=== PATIENT | male | born 1950 | race Caucasian/White ===

== ENCOUNTER → 2018-01-16 | Outpatient (CLI) | payer MEDICARE ==
--- NOTE | 2018-01-17 05:48 | CT ---
EXAMINATION TYPE: CT brain wo/w con DATE OF EXAM: 01/16/2018 COMPARISON: Prior CT brain January 27, 2014 HISTORY: Syncope per order. CT DLP: 1991.5 mGycm Automated exposure control for dose reduction was used. CONTRAST: CT scan of the head is performed without and with IV Contrast, patient injected with 100 mL of Isovue 300. FINDINGS: Noncontrast images show no acute intracranial hemorrhage or midline shift. There is mild ventricular and sulcal prominence consistent with mild diffuse age-related cerebral atrophy. There is low attenua tion in the deep and periventricular white matter most likely on the basis of product of chronic smal l vessel ischemic change. Postcontrast images show no suspicious enhancing intraparenchymal mass. Pat darling soft tissue density right extracardiac canal is retroflexed remain. There is new air fluid level right sphenoid sinus. Remainder paranasal sinuses are clear. Visualized portion of both globes are in tact. IMPRESSION: 1. There is mild diffuse age-related cerebral atrophy and mild to moderate chronic small vessel ische kenney change redemonstrated without significant interval change. 2. There is no suspicious enhancing intraparenchymal mass. 3. New acute right sphenoid sinus disease noted.
--- NOTE | 2018-01-17 08:21 | US ---
EXAMINATION TYPE: US carotid duplex BILAT DATE OF EXAM: 01/16/2018 COMPARISON: NONE CLINICAL HISTORY: R55 Syncope. h/o tia EXAM MEASUREMENTS: RIGHT: Peak Systolic Velocity (PSV) cm/sec ----- Right CCA: 85.8 ----- Right ICA: 73.8 ----- Right ECA: 85.3 ICA/CCA ratio: 0.9 RIGHT: End Diastole cm/sec ----- Right CCA: 16.8 ----- Right ICA: 22.5 ----- Right ECA: 11.7 LEFT: Peak Systolic Velocity (PSV) cm/sec ----- Left CCA: 77.9 ----- Left ICA: 57.2 ----- Left ECA: 82.3 ICA/CCA ratio: 0.7 LEFT: End Diastole cm/sec ----- Left CCA: 16.8 ----- Left ICA: 15.9 ----- Left ECA: 15.1 VERTEBRALS (direction of flow): Right Vertebral: Antegrade Left Vertebral: Antegrade Rhythm: Normal Mild homogeneous plaque with no stenosis seen, waveform analysis does not show any significant stenos is of the proximal internal carotid arteries. Grayscale, color Doppler, spectral Doppler imaging performed of the carotid arteries. IMPRESSION: No hemodynamic significant stenosis of the proximal internal carotid arteries bilaterall y by Doppler criteria, an indirect measurement of carotid stenosis
== END | disposition home or self-care (01) ==
LOC: RADUSMAIN 16:54
PROVIDERS: ATTEND Internal Medicine
DX: G31.1 Senile degeneration of brain, not elsewhere classified (principal); I67.82 Cerebral ischemia; R55 Syncope and collapse
CPT/HCPCS: 82565; 84520; 93880; 70470; 36415; Q9967

== ENCOUNTER → 2021-06-01 | Outpatient (CLI) | payer MEDICARE ==
--- NOTE | 2021-06-01 13:17 | XR ---
EXAMINATION TYPE: XR chest 2V DATE OF EXAM: 06/01/2021 COMPARISON: NONE HISTORY: Lead placement check TECHNIQUE: Frontal and lateral views of the chest are obtained. FINDINGS: There is a generator in left pectoral region, there are leads in the right atrium and vent ricle, right atrial lead is transversely oriented. Surgical clips are present in left upper quadrant, patchy density at the left lung base and some lateralization of the left hemidiaphragm may be chroni c. There is eventration of the right hemidiaphragm. There is no pneumothorax or pleural effusion. Car diac mediastinal silhouette is within normal limits. IMPRESSION: No evident complication status post lead placement as described, atrial lead is transver sely oriented
== END | disposition home or self-care (01) ==
LOC: RADXRMAIN 11:24
PROVIDERS: ATTEND Internal Medicine Interventional Cardiology
DX: Z45.010 Encounter for checking and testing of cardiac pacemaker pulse generator [battery] (principal)
CPT/HCPCS: 71046

== ENCOUNTER → 2021-10-13 | Day surgery (SDC) | payer MEDICARE ==
[2021-10-09 17:44] VITALS: BMI 39.1
[~2021-10-13] MED LIST: IOPAMIDOL-370 50ML BTL INJ ONE; SODIUM CHLORIDE 0.9% 1,000 ML IV SCH
[2021-10-13 07:02] VITALS: BP 147/79; PULSE 62; RESP 18; TEMP 97.9
[2021-10-13 07:02] LABS: Glucose,Whole Blood 98 mg/dL (75-99)
--- NOTE | 2021-10-13 07:51 | P.EPPROC ---
- EP Procedure Note Electrophysiology Procedure Note: Indication for the procedure High atrial lead impedance Patient underwent dual-chamber pacemaker implanted in [address] [facility] medical information officer Screw-in atrial lead Screw-in RV lead Cinefluoroscopy Cinefluoroscopy of the leads revealed no obvious fractures or breaks in the lead Left upper extremity venogram 15 mL every dye injected into the arm No evidence for any stenosis in the subclavian/axillary junction Normal flow in the innominate vein to the SVC Plan Consider Atrial lead implant If possible, the old atrial lead will be extracted, 3 year screw-in lead
== END ==
LOC: CATHEP 06:27
PROVIDERS: ATTEND Internal Medicine Clinical Cardiac Electrophysiology
DX: T82.110A Breakdown (mechanical) of cardiac electrode, initial encounter (principal); I42.2 Other hypertrophic cardiomyopathy; I10 Essential (primary) hypertension; E11.9 Type 2 diabetes mellitus without complications; I48.0 Paroxysmal atrial fibrillation; Z20.822 Contact with and (suspected) exposure to COVID-19; Z79.01 Long term (current) use of anticoagulants; Z79.84 Long term (current) use of oral hypoglycemic drugs; Z79.4 Long term (current) use of insulin; Z79.899 Other long term (current) drug therapy
CPT/HCPCS: 36005; 75820; 87635; Q9967

== ENCOUNTER 2021-11-26 05:50 | Day surgery (SDC) | payer MEDICARE ==
[2021-11-24 16:43] VITALS: BMI 38.4
[2021-11-26] MEDS ORDERED: ONDANSETRON 4 MG/2 ML VIAL IVP ONE (05:51)
[2021-11-26] MEDS ORDERED: HYDROmorphone 0.5 MG/0.5 ML SYRINGE IVP PRN (05:51)
[2021-11-26] MEDS ORDERED: ceFAZolin 1,000 MG in SODIUM CHLORIDE 0.9% IRRIGATIO 1,000 ML IRRIGATION ONE (05:51)
[2021-11-26] MEDS ORDERED: LACTATED RINGERS 1,000 ML IV SCH ×3 (05:51)
[2021-11-26] MEDS ORDERED: DEXAMETHASONE SOD PHOSPHATE 4 MG/ML 1 ML VIAL IV ONE (05:51)
[2021-11-26] MEDS ORDERED: SODIUM CHLORIDE 0.9% 1,000 ML IV ONE (06:19)
[2021-11-26 06:45] LABS: Glucose,Whole Blood 118 mg/dL (75-99)
[2021-11-26 06:55] LABS: Basophils # (A) 0.2 k/uL (0-0.2); Basophils % (A) 3 %; Eosinophils # (A) 0.4 k/uL (0-0.7); Eosinophils % (A) 5 %; HGB 16.9 gm/dL (13.0-17.5); Lymphocytes # (A) 1.8 k/uL (1.0-4.8); Lymphocytes % (A) 23 %; MCH 31.7 pg (25.0-35.0); MCHC 33.7 g/dL (31.0-37.0); MCV 93.8 fL (80.0-100.0); Mean Platelet Volume 8.4; Monocytes # (A) 0.7 k/uL (0-1.0); Monocytes % (A) 9 %; Neutrophils # (A) 4.6 k/uL (1.3-7.7); Neutrophils % (A) 58 %; Platelet Count 238 k/uL (150-450); RBC 5.33 m/uL (4.30-5.90); RDW 13.3 % (11.5-15.5); WBC 7.9 k/uL (3.8-10.6)
[2021-11-26] MEDS ORDERED: fentaNYL (PF) 50 MCG/ML 2 ML AMP ONE (07:14)
[2021-11-26] MEDS ORDERED: MIDAZOLAM 2 MG/2 ML VIAL ONE (07:14)
[2021-11-26 07:16] LABS: Calcium 9.7 mg/dL (8.4-10.2); Potassium 3.9 mmol/L (3.5-5.1)
[2021-11-26] MEDS ORDERED: LIDOCAINE 1% INJ 10MG/ML (20 ML MDV) ONE ×3 (07:21→10:47)
[2021-11-26] MEDS ORDERED: LIDOCAINE 1% INJ 10MG/ML (20 ML MDV) SQ ONE ×2 (08:06→08:16)
[2021-11-26] MEDS ORDERED: IOPAMIDOL-370 50ML BTL INJ ONE (08:35)
[2021-11-26] MEDS ORDERED: VANCOMYCIN 1,750 MG in SODIUM CHLORIDE 0.9% 500 ML 500 ML IVPB ONE (09:00)
[2021-11-26] MEDS ORDERED: ACETAMINOPHEN IV (For NPO) 1,000 MG in EMPTY BAG 1 BAG IVPB ONE (11:26)
--- NOTE | 2021-11-26 11:42 | P.EPPROC ---
- EP Procedure Note Electrophysiology Procedure Note: Diagnosis High atrial lead impedance, good P waves sensing History of hypertension diabetes, HCM Procedure Patient was brought to the EP lab in a fasting state. Written informed consent was obtained prior to the procedure. IV antibiotics administered Local anesthesia administered. An incision made in the left pectoral region and carried down to the level of the generator The generator, pacemaker, [facility] medical explanted. Atrial and ventricular leads coiled within the scar tissue. Both the leads were freed carefully from the scar tissue. Venogram was performed 2 access is obtained very laterally at the level of the second rib, axillae venous access The guidewires placed in the right atrium/IVC Then, the sleeves of the chronic Lead were freed, stylets successfully placed in the lower of the leads Atrial lead appeared to be free all along the length from the subclavian vein to the right atrium. An attempt was made to unscrew the lead However on fluoroscopy we could not unscrew the lead at all. This screw appeared to be bent and was at the head to the right atrial tissue This is confirmed with a very gentle tug test At this point a decision was made not to extract this lead. This lead was secured to the pectoralis muscle with the lead sleeve once again and then capped without cutting the lead The lead was secured to the pectoralis muscles The RV lead was fairly along the subclavian, innominate vein and SCC. However it appeared to be adhered to the tricuspid valve area Impedances were stable thresholds were good sensing was excellent Therefore decision was made not to extract with mechanical traction Sheath was placed in the subclavian vein. A 52 cm screw-in [employer] manager medical writing was placed in the right atrium, in the appendage Excellent position excellent sensing with good current of injury noted, and the lead was screwed in Pacing threshold was 0.5 V at 0.5 ms, P waves greater than 5 mV, pacing impedance 810 ohms Sheath was removed. The atrial lead was secured to the pectoralis muscle The new right atrial seizures manager medical writing in the chronic right ventricular [employer] manager medical writing was connected to the old pacemaker generator The RV lead was inspected. An insulation breach was noted just distal to the lead sleeve and this was repaired with silicone and tubing and secured Both leads were then connected to the old generator and the wound was closed in 3 layers and dressed per protocol This procedure took greater than 3 hours on account of evaluation for attempted lead extraction of the chronic right atrium and right ventricular leads Patient tolerated the procedure well without any acute complications. He received IV vancomycin through the procedure Plan IV antibiotics chest x-ray and monitor on telemetry overnight
[2021-11-26] MEDS: SODIUM CHLORIDE 0.9% 1,000 ML IV SCH ×2 (11:57→20:18)
[2021-11-26] MEDS ORDERED: PATIENT'S OWN (Dulaglutide [Trulicity] 0.75 MG/0.5 ML Each) SQ SCH (12:00)
[2021-11-26 12:08] LABS: Glucose,Whole Blood 75 mg/dL (75-99)
--- NOTE | 2021-11-26 12:11 | P.HPCAR ---
History of Present Illness This is Dr. Nguyen dictating an H/P on this patient The patient was interviewed and examined IMPRESSION / ASSESSMENT: Recurrent paroxysmal atrial fibrillation with RVR, symptomatic Recurrent AV connie reentrant tachycardia Failed antiarrhythmic drug therapy as well as AV connie blockers CAD status post coronary artery bypass grafting Hypertension, essential, type 2 diabetes PLAN: A. fib ablation with pulmonary vein isolation and linear ablation as needed Subsequently slow pathway ablation for AV connie reentrant tachycardia HPI patient has had several episodes of palpitations since he was last seen he did no syncope no chest discomfort When he went for cardiac rehab he was experiencing atrial fibrillation with RVR with exercise ROS: No fever chills or rigors, no cough, phlegm or expectoration, no nausea, vomiting or diarrhea, no hematuria, dysuria, no musculoskeletal complaints, no strokes or seizures, no skin lesions. EXAMINATION: Afebrile 98.1F pulse rate in the 60s number respirations Orthopnea Blood pressure 150/70 mmHg Heart sounds S1 is 12 normal Breath sounds are clear REVIEW OF LABS, ECG & MEDICAL DATA Normal white count 7.9 thousand Hemoglobin 16.9, platelet count 230,000 Sodium 138, potassium 3.9 BUN 34 and creatinine 1.3 Physical Exam Vitals: Vital Signs Temp Pulse Resp BP Pulse Ox 11/26/21 07:25 97.6 F 65 16 119/76 97 Intake and Output 11/25/21 11/26/21 11/26/21 22:59 06:59 14:59 Intake Total 100 950 Balance 100 950 Intake: IV 100 950 Other: Weight 115.5 kg 115.5 kg Past Medical History Past Medical History: Atrial Fibrillation, Diabetes Mellitus, Hyperlipidemia, Hypertension, Myocardial Infarction ([place]), Osteoarthritis (OA), Sleep Apnea/CPAP/BIPAP Additional Past Medical History / Comment(s): Pacemaker. Uses CPAP. Hx Covid 08/2021, had antibody infusion.SEE DR NGUYEN'S HISTORY AND PHYSICAL FOR CARDIAC HISTORY Last Myocardial Infarction Date:: 1995 History of Any Multi-Drug Resistant Organisms: None Reported Past Surgical History: Hernia Repair, Pacemaker Additional Past Surgical History / Comment(s): Splenectomy. Pacemaker [facility]. Inguinal hernia. Bilat cataracts Past Anesthesia/Blood Transfusion Reactions: No Reported Reaction Type of Cardiac Device: Permanent Pacemaker Device Placement Date:: 08/07/17 Smoking Status: Never smoker - Past Family History Mother Family Medical History: Cancer Additional Family Medical History / Comment(s): lung cancer Physical Examination Vital Signs Temp Pulse Resp BP Pulse Ox 11/26/21 07:25 97.6 F 65 16 119/76 97 Intake and Output 11/25/21 11/26/21 11/26/21 22:59 06:59 14:59 Intake Total 100 950 Balance 100 950 Intake: IV 100 950 Other: Weight 115.5 kg 115.5 kg Results 11/26/21 06:20 11/26/21 06:20 CBC 11/26/21 Range/Units 06:20 WBC 7.9 (3.8-10.6) k/uL RBC 5.33 (4.30-5.90) m/uL Hgb 16.9 (13.0-17.5) gm/dL Hct 50.0 (39.0-53.0) % Plt Count 238 (150-450) k/uL Comprehensive Metabolic Panel 11/26/21 Range/Units 06:20 Sodium 138 (137-145) mmol/L Potassium 3.9 (3.5-5.1) mmol/L Chloride 99 (98-107) mmol/L Carbon Dioxide 31 H (22-30) mmol/L BUN 24 H (9-20) mg/dL Creatinine 1.31 H (0.66-1.25) mg/dL Glucose 125 H (74-99) mg/dL Calcium 9.7 (8.4-10.2) mg/dL Current Medications Generic Name Dose Route Start Last Admin Trade Name Freq PRN Reason Stop Dose Admin Acetaminophen 650 mg 11/26/21 18:00 Acetaminophen Tab 325 Mg Tab PO Q6HR PRN Mild Pain Amlodipine Besylate 10 mg 11/27/21 09:00 Amlodipine 10 Mg Tab PO DAILY WM Atorvastatin Calcium 20 mg 11/26/21 21:00 Atorvastatin 20 Mg Tab PO HS WM Hydrochlorothiazide 25 mg 11/27/21 09:00 Hydrochlorothiazide 25 Mg Tab PO DAILY WM Hydromorphone HCl 0.5 mg 11/26/21 05:51 Hydromorphone 0.5 Mg/0.5 Ml Syringe IVP 11/26/21 23:00 Q5M PRN Phase I - Pain Control Sodium Chloride 1,000 mls @ 20 mls/hr 11/26/21 05:51 11/26/21 11:57 Saline 0.9% IV 12/26/21 05:52 Not Given .Q24H WM Cefazolin Sodium 2 gm/ Sodium 50 mls @ 100 mls/hr 11/26/21 14:00 Chloride IVPB 11/27/21 02:29 Q6H [facility] Insulin Detemir 60 unit 11/26/21 21:00 Insulin Detemir (Levemir) 100 Unit/Ml Syr SQ HS [facility] Losartan Potassium 100 mg 11/27/21 09:00 Losartan 50 Mg Tab PO DAILY [facility] Metformin HCl 1,000 mg 11/28/21 09:00 Metformin 500 Mg Tab PO BID [facility] Metoprolol Tartrate 75 mg 11/26/21 16:00 Metoprolol Tartrate 25 Mg Tab PO TID WM Patient's Own ( 10 mg 11/27/21 09:00 Empagliflozin [ PO Jardiance] 10 Mg DAILY [facility] Tablet) Patient's Own ( 0.75 mg 11/26/21 12:00 11/26/21 12:08 Dulaglutide [ SQ Not Given Trulicity] 0.75 Mg/0 TH WM .5 Ml Each) Sodium Chloride 10 ml 11/26/21 21:00 Sodium Chloride 0.9% Flush 10 Ml Syringe IV Q12HR [facility] Intake and Output 11/25/21 11/26/21 11/26/21 22:59 06:59 14:59 Intake Total 100 950 Balance 100 950 Intake: IV 100 950 Other: Weight 115.5 kg 115.5 kg Patient Weight 11/27/21 06:59 Weight 115.5 kg 11/26/21 06:20 11/26/21 06:20
[2021-11-26 13:00] VITALS: RESP 18
[2021-11-26] MEDS: METOPROLOL TARTRATE 25 MG TAB PO SCH ×2 (16:34→21:38)
[2021-11-26 16:42] LABS: Glucose,Whole Blood 209 mg/dL (75-99)
[2021-11-26 20:19] LABS: Glucose,Whole Blood 116 mg/dL (75-99)
[2021-11-26] MEDS ORDERED: ATORVASTATIN 20 MG TAB PO SCH (21:00)
[2021-11-26] MEDS ORDERED: INSULIN DETEMIR (LEVEMIR) 100 UNIT/ML SYR SQ SCH (21:00)
[2021-11-26] MEDS: ACETAMINOPHEN TAB 325 MG TAB PO PRN (21:38)
[2021-11-26] MEDS ORDERED: cloNIDine HCL 0.1 MG TAB PO SCH (22:15)
[2021-11-27 03:43] VITALS: TEMP 98
[2021-11-27] MEDS: ACETAMINOPHEN TAB 325 MG TAB PO PRN (03:44)
[2021-11-27 06:14] LABS: Glucose,Whole Blood 81 mg/dL (75-99)
--- NOTE | 2021-11-27 08:16 | XR ---
EXAMINATION TYPE: XR chest 2V DATE OF EXAM: 11/27/2021 COMPARISON: Chest x-ray 06/01/2021 HISTORY: Lead placement check TECHNIQUE: Frontal and lateral views of the chest are obtained. FINDINGS: There is a generator in the left pectoral region, leads are present in the right atrium an d ventricle as on prior. Surgical clips are present in the left upper quadrant. Lung volumes are low. There is no evident pneumothorax or pleural effusion. Cardiac mediastinal silhouette is stable. Aort a is dense. There are overlying leads. IMPRESSION: Expiratory exam. No evident complication status post lead placement
[2021-11-27] MEDS ORDERED: PATIENT'S OWN (Empagliflozin [Jardiance] 10 MG Tablet) PO SCH (09:00)
[2021-11-27] MEDS ORDERED: hydroCHLOROthiazide 25 MG TAB PO SCH (09:00)
[2021-11-27] MEDS ORDERED: LOSARTAN 50 MG TAB PO SCH (09:00)
[2021-11-27] MEDS ORDERED: amLODIPine 10 MG TAB PO SCH (09:00)
[2021-11-27] MEDS: METOPROLOL TARTRATE 25 MG TAB PO SCH (10:25)
[2021-11-27 11:50] LABS: Glucose,Whole Blood 109 mg/dL (75-99)
[2021-11-27 13:25] VITALS: BP 103/73; PULSE 70
--- NOTE | 2021-11-27 13:32 | DS ---
DISCHARGE SUMMARY Pepito Juarez is a 71-year-old gentleman with history of hypertension, hyperlipidemia, hypertrophic obstructive cardiomyopathy, and also has paroxysmal atrial fibrillation with sick sinus syndrome. He had a dual-chamber pacemaker in 2018, but had significantly elevated impedance on the atrial lead. Dr. Nguyen evaluated him yesterday and tried to extract the atrial lead, but could not; most of the resistance is at the tip of the lead. A new atrial lead was placed. This morning he is doing well. The site is clean and dry. Chest x-ray is unremarkable with no evidence of any complications. Device interrogation suggested that ventricular rate is working well. Atrial lead assessment could not be performed well because patient was in atrial fibrillation. However, the impedance and sensing seem to be very good today. I am recommending that he can be discharged. He will follow up with me in one week in the office and we will do a device check. The old atrial lead has been capped and both the ventricular lead, which is an old lead, and the new atrial lead are functioning well. The impedance is 600 ohms and sensing is also good, more than 5.0 mV. Patient will be discharged later on today on oral Keflex 500 mg t.i.d. for two days. Discharge instructions regarding activity, diet and medications were given. Physical exam revealed vitals are stable. No JVD. S1-S2 heard normally. Irregular rhythm noted. Short systolic murmur noted. Lungs reveal decent air entry. Abdomen is soft, nontender. Lower extremities reveal palpable pulses. No edema. Central nervous system is normal. The pacemaker site is clean and dry. Patient will be discharged today. MMODL / IJN: [id number] /
[2021-11-28] MEDS ORDERED: metFORMIN 500 MG TAB PO SCH (09:00)
== END 2021-11-27 14:06 | disposition home or self-care (01) ==
LOC: CATHEP 05:50 → 3SCARD 11:08 → CATHEP 11-27 14:06
PROVIDERS: ATTEND Internal Medicine Clinical Cardiac Electrophysiology
DX: T82.110A Breakdown (mechanical) of cardiac electrode, initial encounter (principal); I10 Essential (primary) hypertension; I42.2 Other hypertrophic cardiomyopathy; I48.91 Unspecified atrial fibrillation; I49.5 Sick sinus syndrome; E11.9 Type 2 diabetes mellitus without complications; Z20.822 Contact with and (suspected) exposure to COVID-19; Z95.1 Presence of aortocoronary bypass graft; I25.2 Old myocardial infarction; M19.90 Unspecified osteoarthritis, unspecified site; G47.33 Obstructive sleep apnea (adult) (pediatric); Z79.01 Long term (current) use of anticoagulants; Z79.4 Long term (current) use of insulin; Z79.84 Long term (current) use of oral hypoglycemic drugs; Z79.899 Other long term (current) drug therapy
CPT/HCPCS: 33216; 33234; 80048; 85025; 87635; 71046; C1769 ×3; C1892; C1898; J2250; J3370; J0690 ×3; J2001; J3010; J0131; Q9967

== ENCOUNTER → 2022-03-10 | Outpatient (CLI) | payer MEDICARE | END | disposition home or self-care (01) | LOC: LABWHC1 13:56 | PROVIDERS: ATTEND Internal Medicine | DX: E87.6 Hypokalemia (principal) | CPT/HCPCS: 36415; 84132 ==

== ENCOUNTER → 2024-10-30 | Outpatient (CLI) | payer MEDICARE ==
[2024-10-30 17:03] LABS: ALT 27 U/L (10-49); AST 26 U/L (14-35); Albumin 4.4 g/dL (3.8-4.9); Albumin/Globulin Ratio 1.76 Ratio (1.60-3.17); Alkaline Phosphatase 80 U/L (41-126); BUN/Creat Ratio 10.42 Ratio (12.00-20.00); Blood Urea Nitrogen 12.5 mg/dL (9.0-27.0); Calcium 9.8 mg/dL (8.7-10.3); Carbon Dioxide 23.9 mmol/L (21.6-31.8); Chloride 101 mmol/L (96-109); Globulin 2.5 g/dL (1.6-3.3); Glucose 133 mg/dL (70-110); Potassium 4.2 mmol/L (3.5-5.5); Sodium 139 mmol/L (135-145); Total Bilirubin 0.5 mg/dL (0.3-1.2); Total Protein 6.9 g/dL (6.2-8.2)
== END | disposition home or self-care (01) ==
LOC: LABWHC1 11:58
PROVIDERS: ATTEND Internal Medicine Interventional Cardiology
DX: I48.19 Other persistent atrial fibrillation (principal)
CPT/HCPCS: 36415; 80053